=== PATIENT | female | born 1960 | race Caucasian/White ===

== ENCOUNTER 2025-06-03 08:41 | Inpatient (IN) ==
[2025-06-03] MEDS ORDERED: DILAUDID INJ IVP PRN (10:14)
[2025-06-03 10:40] LABS: MEAN PLATELET VOLUME 8.1 fL (7.4-11.0); RED CELL DISTRIBUTION WIDTH 23.4 % (11.6-16.5)
[2025-06-03] MEDS ORDERED: LEXAPRO ONE (10:50)
[2025-06-03 10:54] LABS: PLATELET MORPHOLOGY COMMENT NORMAL (NORMAL)
[2025-06-03 10:55] LABS: COR CA(FOR HYPOALB) 9.9 mg/dL (8.5-10.1); CREATININE 0.45 mg/dL (0.55-1.02); eGFR NON BLACK RACES > 60 (>60)
[2025-06-03] MEDS: READI-CAT 2 ONE (10:55)
[2025-06-03] MEDS: LEXAPRO PO SCH (10:57)
[2025-06-03] MEDS: KLONOPIN TAB 0.5 MG PO PRN (10:57)
[2025-06-03] MEDS: LR 1,000 ML IV 1,000 ML IV SCH (10:57)
--- NOTE | 2025-06-03 11:19 | VAS ---
EXAM: Bilateral lower extremity venous Doppler evaluation HISTORY: Bilateral lower extremity edema TECHNIQUE: Multiple grayscale sonographic images were obtained. Color duplex Doppler evaluation was performed. COMPARISON: 11/11/2024 FINDINGS: Bilaterally the common femoral veins, superficial femoral veins, popliteal veins, and posterior tibial veins are patent demonstrating normal flow, compression, and distal augmentation. IMPRESSION: Exam negative for DVT bilateral lower extremities THIS IS AN ELECTRONICALLY VERIFIED FINAL REPORT 06/03/2025 11:16 AM - Electronically signed by Gary Newell MD
[2025-06-03] MEDS: HYPERTONIC IV NR (11:32)
[2025-06-03] MEDS: SODIUM CHLORIDE 3% IV NR (11:32)
[2025-06-03 11:57] VITALS: BMI 26.9
[2025-06-03] MEDS ORDERED: NS 1,000 ML IV 1,000 ML IV SCH (12:00)
[2025-06-03] MEDS ORDERED: OMNIPAQUE 350 mg/mL 100 mL BTL 100 ML ONE (14:02)
[2025-06-03] MEDS: OMNIPAQUE 350 mg/mL 100 mL BTL IVP NR (14:49)
--- NOTE | 2025-06-03 15:43 | CT ---
EXAM: CT CHEST WITH CONTRAST HISTORY: dyspnea; COMPARISON: CTA of the chest from May 26, 2025 (1 week ago). TECHNIQUE: Axial CT images were obtained through the chest after the intravenous administration of contrast. Coronal reformatted images were included. All CT scans at this facility use dose modulation, iterative reconstruction, and/or weight based dosing when appropriate to reduce radiation dose to as low as reasonably achievable. FINDINGS: CARDIOVASCULAR: Thoracic aorta is unremarkable. The large left pleural effusion displaces of the mediastinal structures including the heart to the right of midline by approximately 2.7 cm (measured at the level of the jimmy) compared to 1.8 cm on the prior CT from a week ago. Heart is not enlarged. Right sided life port. PULMONARY ARTERY TRUNK DIAMETER: Measures within normal limits. PERICARDIAL EFFUSION: None. LYMPH NODES: Stable mediastinal adenopathy. No evidence for right hilar adenopathy. Left hilum is not well evaluated due to the diffuse left chest disease. PLEURAL SPACES: Interval increased large left pleural effusion nearly completely occupies the left hemithorax with sparing with small portion of the left pulmonary apex medially. There are thin linear wisps of densities within this effusion suggesting a complex effusion. Stable mild right pleural effusion which may be loculated and located posteromedially the right lower lung zone level. No pneumothorax. LUNGS: The left lower lobe is completely compressed. Left upper lobe is almost completely compressed with sparing of the small portion of the left apex medially. Varying sized rounded mass lesions of the left lung (some of these that were visible on prior CT are now obscured by the large effusion). Stable numerous rounded mass lesions throughout the right lung. CENTRAL AIRWAYS: Left upper lobe and left lower lobe bronchial airways are compromised likely due to extrinsic mass effect from the large left effusion. Right lung larger central airways appear patent. UPPER ABDOMEN: No obvious hepatic lesions are evident on this exam however this is not a dedicated CT abdomen exam. Portions of the adrenals that were imaged demonstrate no evidence for mass lesions. BONES: Evidence for lytic or blastic osseous lesions. Stable positioning of the left-sided chest tube with the distal tip positioned medially at the level of T12. IMPRESSION: Interval increased large left pleural effusion otherwise no significant change from prior CT from about a week ago. See above for details. THIS IS AN ELECTRONICALLY VERIFIED FINAL REPORT 06/03/2025 3:40 PM - Electronically signed by Rick Cunningham DO
--- NOTE | 2025-06-03 16:15 | CT ---
EXAM: CT ABDOMEN AND PELVIS WITH CONTRAST HISTORY: dyspnea; COMPARISON: CT from November 11, 2024. TECHNIQUE: Axial CT images were obtained through the abdomen and pelvis after the intravenous administration of contrast. GI contrast was given. Coronal and sagittal reformatted images were included. All CT scans at this facility use dose modulation, iterative reconstruction, and/or weight based dosing when appropriate to reduce radiation dose to as low as reasonably achievable. FINDINGS: LOWER THORAX: See the separate CT chest report from the same date as this exam. LIVER: Stable 6 mm hypodense lesion of the dome of the right hepatic lobe and stable 13 mm hypodense lesion of the caudal aspect of the right hepatic lobe. No evidence for new hepatic lesions. GALLBLADDER: Unremarkable. SPLEEN: Unremarkable. PANCREAS: Unremarkable. KIDNEYS/URETERS/BLADDER: Kidneys are unremarkable. No evidence for obstructive uropathy. Urinary bladder is not well evaluated due to poor distention but no obvious abnormalities of the urinary bladder are evident on this exam. ADRENAL GLANDS: Unremarkable. ABDOMINAL AORTA: Abdominal aorta is unremarkable. Celiac artery, SMA and MIKE are patent. LYMPH NODES: Interval metastatic nodes within the retroperitoneum and the mesentery. Newly enlarged left para-aortic node that measures 3.9 x 3.8 cm at the level of the left renal vascular pedicle. Newly enlarged left para-aortic node more caudally the level of the bifurcation measures 3 x 2.7 cm. Newly enlarged mesenteric nodes within the right abdomen measuring about 6.3 x 5.5 cm. Newly enlarged left pelvic node measuring about 8 x 4 cm. Other additional newly enlarged nodes are noted within the mesentery of the abdomen and also within the deep pelvis. GI TRACT: No evidence for intestinal obstruction.Appendix is unremarkable. ASCITES: Small amount of low-density fluid in the rectovesical space. PNEUMOPERITONEUM: None. GENITALS: Interval hysterectomy with surgical removal of the large uterine pelvic mass that extended up into the abdomen. ANTERIOR ABDOMINAL WALL: No evidence for anterior abdominal wall hernia. INGUINAL HERNIA:None. BONES: Interval lytic metastatic lesion within the L4 vertebral body that is breaking through the posterior cortex of L4 and partially extending into the anterior epidural space producing mild spinal canal stenosis at this level however this would be better evaluated using MRI. Interval lytic metastatic lesion of the right acetabulum with cortical breakthrough (image 75 of series 2). IMPRESSION: Interval status post hysterectomy with surgical removal of the previously demonstrated large uterine pelvic mass. Interval development of numerous enlarged metastatic nodes within the abdomen as noted above. Interval development of lytic metastatic lesion of the L4 vertebral body extending into the anterior epidural space producing mild spinal canal stenosis however this would be better evaluated using MRI. Interval lytic metastatic lesion of the right acetabulum with cortical breakthrough. There are 2 small hepatic lesions that are stable. Other findings as above. THIS IS AN ELECTRONICALLY VERIFIED FINAL REPORT 06/03/2025 4:11 PM - Electronically signed by Rick Cunningham DO
[2025-06-03] MEDS: ZOFRAN TAB 4 MG SL PRN (23:38)
[2025-06-04 05:13] LABS: MEAN PLATELET VOLUME 8.2 fL (7.4-11.0)
[2025-06-04 05:24] LABS: RED CELL DISTRIBUTION WIDTH 22.7 % (11.6-16.5)
[2025-06-04 05:27] LABS: COR CA(FOR HYPOALB) 9.8 mg/dL (8.5-10.1); COR NA(FOR HYPERGLY) 122 mmol/L (136-145); CREATININE 0.52 mg/dL (0.55-1.02); eGFR NON BLACK RACES > 60 (>60)
[2025-06-04 06:14] LABS: PLATELET MORPHOLOGY COMMENT NORMAL (NORMAL)
[2025-06-04] MEDS ORDERED: LEXAPRO ONE ×2 (08:12→11:07)
[2025-06-04] MEDS ORDERED: PATIENT'S HOME MEDICATION PO SCH (09:00)
[2025-06-04] MEDS: NS 100 ML IV 100 ML with VENOFER 300 MG IV ONE (12:18)
[2025-06-04] MEDS: NS 1,000 ML IV 1,000 ML IV SCH (12:19)
[2025-06-04] MEDS: NS 500 ML IV 500 ML IV ONE (14:31)
[2025-06-05 05:01] LABS: MEAN PLATELET VOLUME 7.9 fL (7.4-11.0); RED CELL DISTRIBUTION WIDTH 24.0 % (11.6-16.5)
[2025-06-05 05:11] LABS: COR CA(FOR HYPOALB) 10.1 mg/dL (8.5-10.1); COR NA(FOR HYPERGLY) 124 mmol/L (136-145); CREATININE 0.52 mg/dL (0.55-1.02); eGFR NON BLACK RACES > 60 (>60)
[2025-06-05 05:26] LABS: PLATELET MORPHOLOGY COMMENT NORMAL (NORMAL)
[2025-06-05] MEDS ORDERED: LEXAPRO ONE (08:23)
[2025-06-05] MEDS ORDERED: LEXAPRO PO SCH (09:00)
[2025-06-05] MEDS: CORTEF ONE ×2 (09:37→12:08)
[2025-06-05] MEDS: CORTEF PO SCH ×2 (09:37→16:19)
[2025-06-05] MEDS ORDERED: CORTEF ONE (16:09)
[2025-06-06 05:41] LABS: MEAN PLATELET VOLUME 7.7 fL (7.4-11.0); RED CELL DISTRIBUTION WIDTH 25.2 % (11.6-16.5)
[2025-06-06 05:53] LABS: COR CA(FOR HYPOALB) 10.0 mg/dL (8.5-10.1); CREATININE 0.48 mg/dL (0.55-1.02); eGFR NON BLACK RACES > 60 (>60)
[2025-06-06 06:02] LABS: PLATELET MORPHOLOGY COMMENT NORMAL (NORMAL)
[2025-06-06 07:50] VITALS: BP 119/62; PULSE 111; RESP 24; TEMP 97.7; O2SAT 91
[2025-06-06] MEDS ORDERED: LEXAPRO ONE (08:10)
[2025-06-06] MEDS ORDERED: CORTEF ONE (08:10)
[2025-06-06] MEDS: LEXAPRO PO SCH (08:15)
[2025-06-06] MEDS ORDERED: ROXICODONE TAB 5 MG PO PRN (10:31)
[2025-06-06] MEDS: MAGNESIUM SULFATE 1 GRAM/100 mL PREMIX 1 G/100 ML BAG IV SCH (11:14)
[2025-06-06] MEDS: THERMOTABS PO SCH (11:14)
[2025-06-06] MEDS: LASIX PO ONE (11:20)
[2025-06-06] MEDS: CORTEF ONE (13:06)
[2025-06-06] MEDS ORDERED: COLACE CAP 100 MG PO SCH (21:00)
== END 2025-06-06 16:10 | disposition home health service (06) | DRG 948 ==
LOC: ICU 10:00
PROVIDERS: ADMIT Obstetrics & Gynecology Obstetrics; ATTEND Obstetrics & Gynecology Obstetrics
DX: R73.09 Other abnormal glucose; C54.1 Malignant neoplasm of endometrium; E27.49 Other adrenocortical insufficiency; R06.02 Shortness of breath; E87.1 Hypo-osmolality and hyponatremia; C79.51 Secondary malignant neoplasm of bone; R60.0 Localized edema; G89.3 Neoplasm related pain (acute) (chronic); J90 Pleural effusion, not elsewhere classified; R06.09 Other forms of dyspnea; D64.89 Other specified anemias

== ENCOUNTER 2025-06-09 15:39 | Observation (INO) ==
--- NOTE | 2025-06-09 16:17 | ED.ABDFE ---
HPI Time Seen Time Seen by Provider: 06/09/25 15:47 PCP Primary Care Physician: Abdalla Complaint Doctors Chief Complaint Comments: Agree with notes below. c/o marked dyspnea. Pt admits to increasing weakness, decreased appetite and increasing pain to abd and back. Denies fever. Denies other complaints. Chief Complaint:: PT states she was d/c from [facility] on Saturday. For the last 4 days she's been feeling weak, had swollen legs, her stomach is bloated and feeling some shortness of breath. Pt has met CA that started in her uterus and has spread to her lungs. She has a left pleural drain that is scheduled for tomorrow and is done every other day at home. PT wears 2L NC home O2 and is 95% on 2L NC. COVID-19 Coronavirus risk:travel/contact w/high risk person: No Has patient experienced Coronavirus symptoms: Yes Coronavirus symptoms experienced: Shortness of Breath Source History Provided: Patient and EMS Mode of arrival Mode of Arrival: EMS Timing Onset of Chief Complaint: 06/05/25 PMH PMH Past Medical History: Yes Past Medical History: Anxiety, Arthritis, Dyslipidemia, SVT and Cancer Past Medical History Comment: Lung CA, Uterine CA Past Surgical History: Yes Surgical History: , [employer] Surgery, Hysterectomy and Tonsillectomy Family History History of Family Medical Conditions: Yes Family Medical History: Cancer Social History Alcohol Use: None Do you use any recreational Drugs:: No Lives With: Spouse Lives Where: Home Travel Risk Coronavirus risk:travel/contact w/high risk person: No Has patient experienced Coronavirus symptoms: Yes Coronavirus symptoms experienced: Shortness of Breath Infectious screening Have you traveled outside the country in the last 6 months?: No Isolation: Standard ROS Review of Systems Constitutional: Malaise, Weakness, Fatigue and Loss of Appetite; negative Fever Respiratoy: Short of Breath Cardiovascular: Edema; negative Chest Pain or Palpitations Gastrointestinal/Abdominal: Abdominal Pain; negative Vomiting All Other Systems: Reviewed and Negative PE Vital Signs Vitals: Vital Signs Temperature 97.4 F Pulse Rate 102 Pulse Rate 104 Pulse Rate 101 Pulse Rate 104 Pulse Rate 104 Pulse Rate 106 Pulse Rate 110 Pulse Rate 111 Pulse Rate 114 Pulse Rate 110 Pulse Rate 113 Pulse Rate 105 Pulse Rate 105 Pulse Rate 105 Pulse Rate 102 Pulse Rate 96 Pulse Rate 98 Pulse Rate 99 Pulse Rate 104 Pulse Rate 105 Pulse Rate 106 Pulse Rate 109 Pulse Rate 110 Respiratory Rate 20 Respiratory Rate 27 Respiratory Rate 24 Respiratory Rate 22 Respiratory Rate 19 Respiratory Rate 22 Respiratory Rate 26 Respiratory Rate 30 Respiratory Rate 27 Respiratory Rate 25 Respiratory Rate 23 Respiratory Rate 22 Respiratory Rate 18 Respiratory Rate 20 Respiratory Rate 24 Respiratory Rate 26 Respiratory Rate 21 Respiratory Rate 24 Blood Pressure 124/67 Blood Pressure 131/67 Blood Pressure 134/74 Blood Pressure 139/95 Blood Pressure 134/75 Blood Pressure 137/77 Blood Pressure 131/76 Blood Pressure 150/77 Blood Pressure 116/70 O2 Sat by Pulse Oximetry 95 O2 Sat by Pulse Oximetry 96 O2 Sat by Pulse Oximetry 94 O2 Sat by Pulse Oximetry 94 O2 Sat by Pulse Oximetry 94 O2 Sat by Pulse Oximetry 94 O2 Sat by Pulse Oximetry 93 O2 Sat by Pulse Oximetry 94 O2 Sat by Pulse Oximetry 89 O2 Sat by Pulse Oximetry 94 O2 Sat by Pulse Oximetry 94 O2 Sat by Pulse Oximetry 95 O2 Sat by Pulse Oximetry 94 O2 Sat by Pulse Oximetry 96 O2 Sat by Pulse Oximetry 96 O2 Sat by Pulse Oximetry 94 O2 Sat by Pulse Oximetry 94 O2 Sat by Pulse Oximetry 95 O2 Sat by Pulse Oximetry 95 O2 Sat by Pulse Oximetry 95 General Limitations: No Limitations, Language Barrier and Other (ill appearing, appears weak and dyspneic. Cachectic.) General Appearance: Alert and In No Apparent Distress Head Head Exam: Normal Inspection Eyes Eye exam: Normal Appearance ENT ENT Exam: Normal Exam Neck Neck Exam: Normal Inspection Chest Chest Inspection: Normal Inspection Respiratory Respiratory Exam: Other (decreased breath sounds on L) Cardiovascular Cardiovascular Exam: Regular Rate and Normal Rhythm Abdominal Exam Abdominal Tenderness: Diffuse Rectal Rectal Exam: Deferred Back Back Exam: Normal Inspection Extremeties Extremities Exam: Normal Inspection Neurologic Neurological Exam: Alert and Oriented X3 Psychiatric Psychiatric Exam: Normal Affect and Normal Mood Skin Skin Exam: Warm, Dry and Intact ROR Labs Reviewed 06/10/25 04:39 06/10/25 04:39 Laboratory: WBC 13.5 X10^3/uL (3.6-10.0) H 06/09/25 16:32 RBC 4.02 X10^6/uL (3.5-5.4) 06/09/25 16:32 Hgb 12.5 g/dL (12.0-16.0) 06/09/25 16:32 Hct 38.1 % (36.0-47.0) 06/09/25 16:32 MCV 94.8 fL (80.0-100.0) 06/09/25 16: MCH 31.2 pg (27.0-34.0) 06/09/25 16: MCHC 32.9 g/dL (33.0-35.0) L 06/09/25 16: RDW 23.6 % (11.6-16.5) H 06/09/25 16: Plt Count 312 X10^3/uL (150.0-450.0) 06/09/25 16: Plt Count Comment Adequate (ADEQUATE) 06/09/25 16: MPV 7.2 fL (7.4-11.0) L 06/09/25 16: Neut % (Auto) 82.3 % (42.0-75.0) H 06/09/25 16: Lymph % (Auto) 5.4 % (21.0-51.0) L 06/09/25 16: Gordon % (Auto) 11.4 % (0.0-13.0) 06/09/25 16: Eos % (Auto) 0.1 % (0.9-2.9) L 06/09/25 16: Baso % (Auto) 0.8 % (0.2-1.0) 06/09/25 16: Neut # (Auto) 11.1 x10^3/uL (2.2-4.8) H 06/09/25 16: Lymph # (Auto) 0.7 X10^3/uL (1.3-2.9) L 06/09/25 16:32 Gordon # (Auto) 1.5 x10^3/uL (0.3-0.8) H 06/09/25 16: Eos # (Auto) 0.0 x10^3/uL (0.0-0.2) 06/09/25 16: Baso # (Auto) 0.1 X10^3/uL (0.0-0.1) 06/09/25 16: Absolute Nucleated RBC 0.0 /100WBC 06/09/25 16: Plt Morphology Comment Normal (NORMAL) 06/09/25 16: RBC Morphology Abnormal (NORMAL) A 06/09/25 16:32 Anisocytosis 2+ A 06/09/25 16:32 PT 13.2 SECONDS (11.8-14.3) 06/09/25 16:32 INR Target Range - 06/09/25 16:32 INR 0.99 (0.8-1.3) 06/09/25 16:32 APTT 26.3 SECONDS (22.9-36.5) 06/09/25 16:32 PTT Comment - 06/09/25 16:32 Sodium 127 mmol/L (136-145) L 06/09/25 16:32 Corrected Sodium 127 mmol/L (136-145) L 06/09/25 16:32 Potassium 4.7 mmol/L (3.5-5.1) 06/09/25 16:32 Chloride 90 mmol/L (98-107) L 06/09/25 16:32 Carbon Dioxide 29.7 mmol/L (21-32) 06/09/25 16:32 BUN 13 mg/dL (7-18) 06/09/25 16:32 Creatinine 0.53 mg/dL (0.55-1.02) L 06/09/25 16:32 Est GFR (MDRD) Af Amer > 60 (>60) 06/09/25 16:32 Est GFR (MDRD) Non-Af > 60 (>60) 06/09/25 16:32 Glucose 117 mg/dL (65-99) H 06/09/25 16:32 Calcium 8.5 mg/dL (8.5-10.1) 06/09/25 16:32 Corrected Calcium 10.0 mg/dL (8.5-10.1) 06/09/25 16:32 Magnesium 1.8 mg/dL (2.0-2.9) L 06/09/25 16:32 Total Bilirubin 0.70 mg/dL (0.2-1.0) 06/09/25 16:32 AST 25 Units/L (15-37) 06/09/25 16:32 ALT 30 Units/L (12-78) 06/09/25 16:32 Alkaline Phosphatase 74 Units/L (46-116) 06/09/25 16:32 Creatine Kinase 36 Units/L (26-192) 06/09/25 16:32 Troponin I High Sens 4.5 ng/L (4.0-60.0) 06/09/25 16:32 B-Natriuretic Peptide 37.6 pg/mL (0-79) 06/09/25 16:32 Total Protein 5.5 g/dL (6.4-8.2) L 06/09/25 16:32 Albumin 2.1 g/dL (3.4-5.0) L 06/09/25 16:32 Globulin 3.4 g/dL (2.5-4.5) 06/09/25 16:32 Albumin/Globulin Ratio 0.6 Ratio (1.1-2.1) L 06/09/25 16:32 Opioid Opioid Risk Tool Age (Rad box if 16-45): No History of Preadolescent Sexual Abuse: No Total: 0 Total Score Risk Category: Low Risk Copyright: Jp TURK predicting aberrant behaviors Discharge Plan Diagnosis Discharge Problem: Pleural effusion, Malignant neoplasm metastatic to bone, Acute hyponatremia, Hypoalbuminemia Discharge Plan Patient Disposition: ADMITTED INPATIENT Condition: Stable Provider Note Additional Notes drained 950 mL from L pleural effusion while here in the ER. Had lengthy conversation with patient, and two daughters. Advised them that her cancer is aggressive and that it seems like end-of-life care is likely the best option at this time. DNR signed by patient and family. Pt maintains medical capacity at this time to be able to sign the DNR. Pt accepted by Dr Abdalla.
--- NOTE | 2025-06-09 16:44 | EKG ---
Test Reason : dyspnea Blood Pressure : */* mmHG Vent. Rate : 104 BPM Atrial Rate : 104 BPM P-R Int : 116 ms QRS Dur : 76 ms QT Int : 296 ms P-R-T Axes : 50 45 98 degrees QTc Int : 389 ms Sinus tachycardia Nonspecific T wave abnormality Abnormal ECG When compared with ECG of 26-MAY-2025 14:29, No significant change was found Confirmed by Jeramie Guerrero MD ([id number]) on 06/10/2025 5:48:35 AM Referred By: Confirmed By: Jeramie Guerrero MD
[2025-06-09 16:47] LABS: MEAN PLATELET VOLUME 7.2 fL (7.4-11.0); RED CELL DISTRIBUTION WIDTH 23.6 % (11.6-16.5)
[2025-06-09 16:51] LABS: INR 0.99 (0.8-1.3)
[2025-06-09 17:01] LABS: COR CA(FOR HYPOALB) 10.0 mg/dL (8.5-10.1); COR NA(FOR HYPERGLY) 127 mmol/L (136-145); CREATININE 0.53 mg/dL (0.55-1.02); eGFR NON BLACK RACES > 60 (>60)
[2025-06-09 17:20] LABS: PLATELET MORPHOLOGY COMMENT NORMAL (NORMAL)
--- NOTE | 2025-06-09 17:22 | RAD ---
EXAM: CHEST X-RAY HISTORY: Shortness of breath. TECHNIQUE: AP chest x-ray dated June 09, 2025 at 4:55 PM. COMPARISON: None available. FINDINGS: There is a right internal jugular central venous catheter with the distal tip in the expected location of the SVC (adequate position). Recommend careful clinical correlation to ensure venous blood return since sometimes intra-arterial catheters can present as normal positioning on CXR. There is suggestion of severe cardiomegaly. There is complete whiteout of the left hemithorax; DDX includes (but is not limited to) large pleural effusion with compressive atelectasis, acute consolidative pneumonia; cannot rule out occult neoplastic disease. Recommend clinical correlation and follow evaluation with CT for further characterization as clinically warranted. There is severe diffuse lung parenchymal infiltrates seen in the right lung in keeping with severe cardiogenic or noncardiogenic pulmonary edema; DDx includes concomitant pneumonia in the appropriate clinical setting. There is no pneumothorax seen. The visualized bony structures are within normal limits. IMPRESSION: 1. Complete whiteout of the left hemithorax; DDX includes (but is not limited to) large pleural effusion with compressive atelectasis, acute consolidative pneumonia; cannot rule out occult neoplastic disease. 2. Severe cardiomegaly and severe diffuse lung parenchymal infiltrates seen in the right lung in keeping with severe cardiogenic or noncardiogenic pulmonary edema; DDx includes concomitant pneumonia in the appropriate clinical setting. 3. Recommend clinical correlation and follow evaluation with CT for further characterization as clinically warranted. 4. Correlation with CT may be beneficial for optimal assessment. THIS IS AN ELECTRONICALLY VERIFIED FINAL REPORT 06/09/2025 5:18 PM - Electronically signed by Elfego Corey MD
[2025-06-09] MEDS: LASIX IVP ONE (18:07)
[2025-06-09] MEDS: ALBUMIN HUMAN 25%- 100 ML 100 ML IV SCH (18:08)
[2025-06-09] MEDS: NS 1,000 ML IV 1,000 ML IV SCH (18:08)
[2025-06-09] MEDS: OMNIPAQUE 350 mg/mL 100 mL BTL IVP NR (18:48)
--- NOTE | 2025-06-09 19:13 | CT ---
EXAM: CTA, CHEST HISTORY: Dyspnea, L lung white out on cxr; COMPARISON: CT chest from June 03, 2025 TECHNIQUE: Axial CT images of the chest were obtained after the administration of 100 mL Omnipaque IV contrast utilizing a CTA protocol. 3D MIPS were performed and reviewed for further evaluation. Radiation dose: 427.10 mGy-cm total DLP FINDINGS: Large left pleural effusion filling the expanded left thoracic cavity resulting in rightward shift of the mediastinum. Nodules in the decompressed left lower lobe measuring up to 4 x 2.3 cm on axial image 102. Patchy areas of high attenuation in the pleural effusion as seen on axial images 66 through 80. Left chest tube in place. Moderate partially loculated right pleural effusion. Bulky nodules throughout the left lung measuring up to 2.9 x 2.7 cm. Right paratracheal lymph node measuring 1.7 x 2.1 cm on axial image 36. Aorta is normal in caliber without dissection. Pulmonary arteries are normal in caliber without filling defects to suggest a pulmonary embolus. Airways are widely patent. No focal infiltrate. No pneumothorax. No acute osseous abnormality. IMPRESSION: 1. Large left and moderate right, partially loculated, pleural effusions which likely represent malignant effusions. Enlarged mediastinal metastatic lymph node. 2. Bulky bilateral lung nodules; consistent with metastatic disease. 3. No pulmonary embolus identified. THIS IS AN ELECTRONICALLY VERIFIED FINAL REPORT 06/09/2025 7:09 PM - Electronically signed by Chon Rodrigez MD
--- NOTE | 2025-06-09 19:28 | CT ---
EXAM: CT ABDOMEN AND PELVIS WITH INTRAVENOUS CONTRAST HISTORY: Diffuse abdominal pain. TECHNIQUE: Spiral axial CT images are obtained through the abdomen and pelvis without the administration of oral contrast and with the administration of intravenous contrast. Additional coronal and sagittal reformatted images are reconstructed. COMPARISON: None available. FINDINGS: PERITONEAL CAVITY: There is interval increase in size and conspicuity of multiple massive heterogeneously enhancing mass lesions throughout the abdominal and pelvic peritoneal cavity (most prominent in the left upper abdomen/inferior chest, right lower quadrant and pelvis, and left and central posterior pelvis), with large can large conglomerate metastatic lymphadenopathy seen in the left periaortic suprarenal and infrarenal retroperitoneal, consistent with interval progression of peritoneal carcinomatosis; DDx includes concomitant pseudomyxomatous peritonei. GASTROINTESTINAL TRACT: There is no evidence for bowel herniation, bowel obstruction, colitis or diverticulitis. A normal-appearing appendix is seen. GENITOURINARY SYSTEM: There is interval development of moderate to severe bilateral hydronephrosis (right greater than left) in keeping with partial obstructive uropathy presumed secondary to extrinsic compression (or invasion) of ureters by retroperitoneal masses/lymphadenopathy; no evidence for urolithiasis. The kidneys are otherwise unremarkable. There is no ureteral calculus or stigmata of obstructive uropathy. The urinary bladder is grossly unremarkable for a non-dedicated exam. LIVER: There is a stable appearing, approximately 1.2 cm x 9.7 mm hypodense lesion seen in the inferior segment of the right lobe which may represent a cyst; DDx includes cystic-appearing metastatic lesion. There is interval increase of scalloping scalloping of the outer capsular margins of the liver in keeping with metastatic disease. CT ABDOMEN: The spleen, pancreas, adrenal glands, gallbladder, aorta, and inferior vena cava are within normal limits for a CT scan. There is no intra-abdominal or retroperitoneal lymphadenopathy, free fluid, or free air seen. No abdominal herniation is noted. CT PELVIS: No pelvic sidewall or inguinal lymphadenopathy is seen. No inguinal herniation is noted. No free fluid or free air is seen. BONES AND JOINTS: There is again evidence for an approximately 2.4 cm lytic expansile metastatic lesion involving the superior endplate of the L4 vertebral body, with an associated pathological Schmorl's node fracture and associated posterior superior bony retropulsion (by 7.2 mm; previously 4.9 mm) and resultant spinal canal and right lateral recess encroachment with impingement of the right L4 nerve root. Sagittal image 39; axial image [id number]. L5/S1: Severe DDD marked by disc space narrowing, endplate sclerosis, vacuum disc phenomena. The visualized bony structures are otherwise within normal limits. LUNG BASES: There is interval progression of massive right posterior inferior hemithorax pleural metastatic disease with large complex mass and/or loculated fluid collection. Multiple innumerable metastatic lesions are seen within the partially imaged right middle lobe and right lower lobe (relatively stable findings). IMPRESSION: 1. Interval increase in size and conspicuity of multiple massive heterogeneously enhancing mass lesions throughout the abdominal and pelvic peritoneal cavity (most prominent in the left upper abdomen/inferior chest, right lower quadrant and pelvis, and left and central posterior pelvis), with large can large conglomerate metastatic lymphadenopathy seen in the left periaortic suprarenal and infrarenal retroperitoneal, consistent with interval progression of peritoneal carcinomatosis; DDx includes concomitant pseudomyxomatous peritonei. 2. Again evidence for an approximately 2.4 cm lytic expansile metastatic lesion involving the superior endplate of the L4 vertebral body, with an associated pathological Schmorl's node fracture and associated posterior superior bony retropulsion (by 7.2 mm; previously 4.9 mm) and resultant spinal canal and right lateral recess encroachment with impingement of the right L4 nerve root. Sagittal image 39; axial image [id number]. 3. Interval progression of massive right posterior inferior hemithorax pleural metastatic disease with large complex mass and/or loculated fluid collection. 4. Multiple innumerable metastatic lesions are seen within the partially imaged right middle lobe and right lower lobe (relatively stable findings). 5. Stable appearing, approximately 1.2 cm x 9.7 mm hypodense lesion seen in the inferior segment of the right lobe which may represent a cyst; DDx includes cystic-appearing metastatic lesion. 6. Interval increase of scalloping scalloping of the outer capsular margins of the liver in keeping with metastatic disease. 7. Again evidence for an approximately 2.4 cm lytic expansile metastatic lesion involving the superior endplate of the L4 vertebral body, with an associated pathological Schmorl's node fracture and associated posterior superior bony retropulsion (by 7.2 mm; previously 4.9 mm) and resultant spinal canal and right lateral recess encroachment with impingement of the right L4 nerve root. Sagittal image 39; axial image [id number]. 8. Interval development of moderate to severe bilateral hydronephrosis (right greater than left) in keeping with partial obstructive uropathy presumed secondary to extrinsic compression (or invasion) of ureters by retroperitoneal masses/lymphadenopathy; no evidence for urolithiasis. 9. No evidence for acute appendicitis, bowel herniation/obstruction, colitis or diverticulitis seen. 10. L5/S1: Severe DDD marked by disc space narrowing, endplate sclerosis, vacuum disc phenomena. THIS IS AN ELECTRONICALLY VERIFIED FINAL REPORT 06/09/2025 7:25 PM - Electronically signed by Elfego Corey MD
[2025-06-09] MEDS ORDERED: ZOFRAN TAB 4 MG PO PRN (22:48)
[2025-06-09] MEDS ORDERED: ULTRAM PO PRN (22:48)
[2025-06-09] MEDS ORDERED: DILAUDID INJ IVP PRN (22:48)
[2025-06-09] MEDS ORDERED: NORCO 5/325 MG TAB PO PRN (22:48)
[2025-06-09] MEDS ORDERED: TYLENOL 325 MG TAB PO PRN (22:48)
[2025-06-09] MEDS ORDERED: ZOFRAN INJ 4 MG VIAL IVP PRN (22:48)
[2025-06-09] MEDS ORDERED: MORPHINE SULFATE INJ 2 MG INJ IVP PRN (22:48)
[2025-06-10] MEDS: RESTORIL CAP 15 MG PO PRN (00:21)
[2025-06-10] MEDS: MAG-OX TAB PO SCH ×2 (01:24→09:06)
[2025-06-10] MEDS: LASIX ONE (03:49)
[2025-06-10] MEDS: OMNIPAQUE 350 mg/mL 100 mL BTL 100 ML ONE (03:50)
[2025-06-10] MEDS: NS 1,000 ML IV 1,000 ML ONE (03:50)
[2025-06-10 04:55] LABS: MEAN PLATELET VOLUME 7.3 fL (7.4-11.0); RED CELL DISTRIBUTION WIDTH 22.3 % (11.6-16.5)
[2025-06-10 05:06] LABS: COR CA(FOR HYPOALB) 10.0 mg/dL (8.5-10.1); COR NA(FOR HYPERGLY) 132 mmol/L (136-145); CREATININE 0.56 mg/dL (0.55-1.02); eGFR NON BLACK RACES > 60 (>60)
[2025-06-10 05:11] LABS: PLATELET MORPHOLOGY COMMENT NORMAL (NORMAL)
[2025-06-10 06:16] VITALS: BMI 29.7
--- NOTE | 2025-06-10 07:05 | RAD ---
EXAM: CHEST, 1 VIEW HISTORY: DEVONTE PL EFFUSIONS; SVT, LUNG CA, UTERINE CA SX CSECTION, HYST, TONSILLECTOMY COMPARISON: Chest x-ray and CT dated 06/09/2025 TECHNIQUE: AP FINDINGS: Right chest port catheter in place. Left heart border is obscured. Persistent complete left hemithorax opacification with left-sided chest tube in place. Right-sided pulmonary nodules and layering pleural effusion are also unchanged. No visible pneumothorax. IMPRESSION: Stable exam. Complete left hemithorax opacification with left chest tube in place. Layering right pleural effusion with stable pulmonary nodules. THIS IS AN ELECTRONICALLY VERIFIED FINAL REPORT 06/10/2025 7:02 AM - Electronically signed by Walter Lott MD
[2025-06-10] MEDS ORDERED: CONSULT PHARMACY - POTASSIUM & MAGNESIUM XX SCH (08:00)
[2025-06-10] MEDS ORDERED: LEXAPRO ONE (08:06)
[2025-06-10] MEDS ORDERED: CORTEF ONE (08:06)
[2025-06-10 08:25] VITALS: BP 135/87; PULSE 96; TEMP 97.5; O2SAT 92
[2025-06-10] MEDS ORDERED: PATIENT'S HOME MEDICATION (Alprazolam 0.25 mg tablet) PO SCH (09:00)
[2025-06-10] MEDS ORDERED: HYDROCORTISONE 10 MG PO SCH (09:00)
[2025-06-10] MEDS: ALPRAZOLAM ODT PO SCH (09:05)
[2025-06-10] MEDS: CORTEF PO SCH (09:06)
[2025-06-10] MEDS: LEXAPRO PO SCH (09:06)
[2025-06-10] MEDS: PERIACTIN TAB 4 MG PO SCH (09:09)
[2025-06-10] MEDS ORDERED: DILAUDID INJ IVP PRN (09:56)
[2025-06-10] MEDS: DILAUDID INJ IVP ONE (10:13)
[2025-06-10] MEDS: MORPHINE SULFATE INJ 2 MG INJ IVP PRN ×2 (10:22→11:32)
[2025-06-10] MEDS: MORPHINE SULFATE INJ 2 MG INJ ONE (10:33)
[2025-06-10] MEDS: DILAUDID INJ IVP NR (10:34)
[2025-06-10] MEDS: MORPHINE SULFATE INJ 2 MG INJ IVP ONE ×2 (10:35→10:44)
[2025-06-10] MEDS ORDERED: MORPHINE SULFATE INJ 2 MG INJ ONE (10:39)
[2025-06-10] MEDS: LOVENOX INJ 40 MG SYR SC SCH (10:43)
[2025-06-10] MEDS: CONSULT PHARMACY - POTASSIUM & MAGNESIUM XX SCH (11:17)
[2025-06-10 12:31] VITALS: RESP 8
== END 2025-06-10 16:15 | disposition expired ==
LOC: ER 15:39 → MED/SURG 21:24 → INTOOBSV 21:24 → MED/SURG 22:14
PROVIDERS: ADMIT Obstetrics & Gynecology Obstetrics; ATTEND Obstetrics & Gynecology Obstetrics
DX: E83.42 Hypomagnesemia; R53.1 Weakness; R06.09 Other forms of dyspnea; R06.02 Shortness of breath; I46.9 Cardiac arrest, cause unspecified; E87.1 Hypo-osmolality and hyponatremia; F41.8 Other specified anxiety disorders; M19.90 Unspecified osteoarthritis, unspecified site; C79.89 Secondary malignant neoplasm of other specified sites; D72.828 Other elevated white blood cell count; R73.09 Other abnormal glucose; E88.09 Other disorders of plasma-protein metabolism, not elsewhere classified; R94.31 Abnormal electrocardiogram [ECG] [EKG]; G89.3 Neoplasm related pain (acute) (chronic); E78.5 Hyperlipidemia, unspecified; Z66 Do not resuscitate; C55 Malignant neoplasm of uterus, part unspecified; Z51.5 Encounter for palliative care; J90 Pleural effusion, not elsewhere classified; R79.89 Other specified abnormal findings of blood chemistry